=== PATIENT | male | born 1945 | race Hispanic/Latino ===

== ENCOUNTER 2022-08-26 08:32 | Day surgery (SDC) | payer OTHER ==
[2022-08-20 12:39] LABS: BASOPHILS % (AUTO) 2.1 % (0.0-5.0); EOSINOPHILS % (AUTO) 4.9 % (0.0-8.0); HEMATOCRIT 40.7 % (42-54); LYMPHOCYTES % (AUTO) 40.6 % (21.0-51.0); MEAN CORPUSCULAR HEMOGLOBIN 32.2 pg (27.0-33.0); MEAN CORPUSCULAR HGB CONC 33.4 g/dL (32.0-36.0); MEAN CORPUSCULAR VOLUME 96.2 fL (79-99); MONOCYTES % (AUTO) 8.2 % (3.0-13.0); PLATELET COUNT (AUTO) 259 K/uL (130-400); RED BLOOD CELL COUNT(AUTO) 4.23 MIL/uL (4.50-6.20); RED CELL DISTRIBUTION WIDTH 12.4 % (11.0-15.5); WHITE BLOOD COUNT (AUTO) 6.3 K/uL (4.8-10.8)
[2022-08-20 13:07] LABS: APPEARANCE,URINE CLEAR (CLEAR); BILIRUBIN,URINE NEGATIVE (NEGATIVE); COLOR,URINE LIGHT-YELLOW (YELLOW); GLUCOSE, URINE (UA) NEGATIVE (NEGATIVE); KETONES,URINE NEGATIVE (NEGATIVE); LEUKOCYTE ESTERASE ,URINE 25 Leu/uL (NEGATIVE); NITRATE,URINE NEGATIVE (NEGATIVE); OCCULT BLOOD,URINE NEGATIVE (NEGATIVE); PROTEIN,URINE NEGATIVE (NEGATIVE); UROBILINOGEN,URINE 0.2 mg/dL (0.2-1.0)
[2022-08-20 13:15] LABS: RBC,URINE 0-1 /HPF (0-1)
[2022-08-25 10:59] VITALS: BP 133/73
[~2022-08-26] VITALS: Ht 162.6 cm; Wt 74.4 kg
[2022-08-26] VITALS (10 sets, daily range): BP systolic 102–119; BP diastolic 48–74
[~2022-08-26 08:32] MED LIST: CEFTRIAXONE 1G VIAL IVPB SCH; METO-408 PO
[2022-08-26] MEDS ORDERED: LACTATED RINGERS 1000ML 1,000 ML IV ONE (09:22)
[2022-08-26 09:41] LABS: CREATININE 1.1 mg/dL (0.5-1.5); POTASSIUM 3.7 mmol/L (3.5-5.1)
[2022-08-26] MEDS: GENTAMICIN 80 MG/NS 100 ML PB 100 ML IV SCH ×2 (09:41→14:00)
[2022-08-26] MEDS ORDERED: LEVO-70 PO (09:49)
[2022-08-26] MEDS ORDERED: LIDOCAINE PF 100MG/5ML (2%) SYRINGE 5ML ONE (14:20)
[2022-08-26] MEDS ORDERED: PROPOFOL 10 MG/ML 20ML VIAL IV ONE (14:21)
[2022-08-26] MEDS ORDERED: MIDAZOLAM HCL 1 MG/ML 2ML VIAL ONE (14:21)
[2022-08-26] MEDS ORDERED: FENTANYL CITRATE PF 50 MCG/1 ML 2ML VIAL ONE (14:21)
== END 2022-08-26 16:25 | disposition home or self-care (01) ==
LOC: DAH 08:32
PROVIDERS: ATTEND Urology
DX: R97.20 Elevated prostate specific antigen [PSA] (principal); C61 Malignant neoplasm of prostate; Z20.822 Contact with and (suspected) exposure to COVID-19; I49.1 Atrial premature depolarization; I10 Essential (primary) hypertension; Z88.0 Allergy status to penicillin; Z79.899 Other long term (current) drug therapy
CPT/HCPCS: 85025; 87088; 87426; 81001; 36415 ×2; 93005; 55700; 80048; 82948; 88305; 88342; 76872; 88341; 76942; J7120; J3010; J2001; J0696; J2250; J2704; J1580 ×2; A4215; A4649